=== PATIENT | female | born 1930 | race Caucasian/White ===

== ENCOUNTER 2017-11-11 17:04 | Emergency (ER) | payer MEDICARE, OTHER ==
[2017-11-11 17:30] LABS: INR-International Normal Ratio 1.1; PTT 27.9 SEC (22.9-36.1); Prothrombin Time 14.2 SEC (12.0-14.7)
[2017-11-11 17:33] LABS: Hemoglobin 10.8 g/dL (12.0-16.0); Mean Corpuscular HGB CONC 33.2 g/dL (32.0-36.0); Mean Corpuscular Hemoglobin 30.4 pg (27.0-31.0); Mean Corpuscular Volume 91.7 fL (81.0-99.0); Mean Platelet Volume 11.1 fL (7.4-10.4); Platelet Count 132 thou/uL (130-400); RBC Distribution Width 11.7 % (11.5-14.5); Red Blood Cell (RBC) Count 3.56 mill/uL (4.20-5.40); White Blood Cell (WBC) Count 14.2 thou/uL (4.8-10.8)
[2017-11-11 17:34] LABS: #Lymphocytes 0.9 thou/uL (1.20-3.40); #Monocytes 0.7 thou/uL (0.11-0.59); #Neutrophils 12.4 thou/uL (1.40-6.50); %Basophils 0.3 % (0.0-1.0); %Eosinophils 0.1 % (0.0-10.0); %Lymphocytes 6.6 % (21.0-51.0); %Monocytes 5.2 % (0.0-10.0); %Neutrophils 87.8 % (42.0-75.0)
[2017-11-11 17:38] LABS: ALT (SGPT) 13 U/L (8-55); AST (SGOT) 23 U/L (5-34); Albumin 3.6 g/dL (3.4-4.8); Alkaline Phosphatase 65 U/L (40-150); Anion Gap 15 mmol/L (10-20); BUN (Urea Nitrogen) 25 mg/dL (9.8-20.1); Bilirubin, Total 0.5 mg/dL (0.2-1.2); Calc. Creatinine Clearance 0 mL/min (70-130); Calcium 10.3 mg/dL (7.8-10.44); Carbon Dioxide 25 mmol/L (23-31); Chloride 107 mmol/L (98-107); Estimated GFR-MDRD 49; Globulin 2.9 g/dL (2.4-3.5); Potassium 3.7 mmol/L (3.5-5.1); Protein, Total 6.5 g/dL (6.0-8.3); Sodium 143 mmol/L (136-145)
[2017-11-11 17:39] LABS: Glucose 195 mg/dL (83-110)
[2017-11-11 17:40] LABS: CKMB 2.2 ng/mL (0-6.6); Troponin I 0.063 ng/mL (< 0.028)
--- NOTE | 2017-11-11 17:43 | CT ---
NONCONTRAST CT HEAD 11/11/17 HISTORY: Fall with numbness to left side. COMPARISON: None available. FINDINGS: There is increased density seen within cerebral sulci bilaterally consistent with bilateral subarachn oid hemorrhage. There is a larger area of increased density seen within the right frontoparietal marisa on near the vertex which measures approximately 3.8 cm transverse x 3.5 cm AP x 2.8 cm craniocaudal s uggesting a large parenchymal hematoma. There is adjacent decreased attenuation consistent with edema . A smaller parenchymal hematoma is seen in the right temporal lobe laterally measuring 2.8 cm x 1.4 cm. There is a very small amount of increased density seen anterior left temporal lobe probably related t o a small amount of subarachnoid hemorrhage in the immediate left supraorbital location. No acute cor tical infarction is visualized. There is no midline shift or hydrocephalus. No calvarial fracture is identified. The visualized paranasal sinuses and mastoid air cells are clear . IMPRESSION: 1. Bilateral subarachnoid hemorrhage with a larger parenchymal hematoma right frontoparietal reg ion near the vertex and a smaller parenchymal hematoma in the right temporal lobe. In addition, there is small left anterior frontal subdural hematoma. Findings may be related to patient's history of tr auma. However, the larger parenchymal hematoma with edema in the right frontoparietal region at the v ertex could potentially be related to an underlying lesion, and followup evaluation of these areas of hemorrhage is recommended to ensure expected evolutionary changes. 2. Above findings were discussed with Dr. Fagan in the Emergency Department on 11/11/17 at 17 28 hours. Code CR POS: CATY
--- NOTE | 2017-11-11 18:15 | CT ---
NONCONTRAST CT CERVICAL SPINE 11/11/17 HISTORY: Left sided weakness after a fall. TECHNIQUE: Contiguous axial CT images are obtained through the cervical spine from the skull base to the T3-4 le tim. Sagittal and coronal reformat images are provided. FINDINGS: There is calcification of the anterior longitudinal ligament. There is partial fusion of the C3 and C 4 vertebral bodies. Additional scattered degenerative changes are seen in the cervical spine. There is prominent uncinate process hypertrophy at the C4-5 level resulting in severe narrowing of th e left neural foramen and mild to moderate right sided neural foraminal narrowing due to bony encroac hment. There is moderate bilateral neural foraminal narrowing at the C5-6 level, again primarily rela luis e to bony encroachment due to facet degenerative changes and uncinate process hypertrophy. The vertebral body heights are within normal limits. There is no fracture or subluxation seen involvi ng the cervical spine. Symmetric biapical pleural and parenchymal scarring is present. Prevertebral soft tissues are within normal limits. The right internal jugular vein is focally distended at the C6-7 level which is overall nonspecific. Gas is seen within a vascular structure in the left supraclavicular location likely related to periph eral intravenous catheter placement. IMPRESSION: 1. No fracture or subluxation involving the cervical spine. 2. Calcification of anterior longitudinal ligament with scattered degenerative changes in the ce rvical spine. POS: CATY
--- NOTE | 2017-11-11 18:32 | CT ---
THORACIC SPINE CT WITHOUT CONTRAST 11/11/17 INDICATION: Fall with left sided weakness. FINDINGS: There is prominent kyphosis throughout the thoracic spine. There is no obvious compression fracture. 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 There is promine nt posterior osteophyte in the mid thoracic spine which does produce prominent right sided cord compr ession on the basis of degenerative process at the T7-8 level. IMPRESSION: No evidence of acute fracture. 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 Recommend clinical correlation for evidence of myelopathy given the promin ent degree of right hemicord compression. POS: C
[2017-11-11] MEDS ORDERED: Ondansetron HCl/PF 4 MG/2 ML Vial ONE (18:41)
== END 2017-11-11 17:57 | disposition short-term general hospital (02) ==
LOC: MADERS 17:04
DX: S06.6X0A Traumatic subarachnoid hemorrhage without loss of consciousness, initial encounter (principal); I10 Essential (primary) hypertension; E03.9 Hypothyroidism, unspecified; Z79.899 Other long term (current) drug therapy; W01.0XXA Fall on same level from slipping, tripping and stumbling without subsequent striking against object, initial encounter
CPT/HCPCS: 70450; 72125; 72128; 80053; 82553; 84484; 85025; 85610; 85730; 96374; J2405